=== PATIENT | female | born 1995 | race Caucasian/White ===

== ENCOUNTER 2017-05-13 13:52 | Observation (INO) | payer BC, MEDICAID ==
[2017-05-13] MEDS ORDERED: Ondansetron 4 MG/2 ML SDV ONE (14:09)
[2017-05-13] MEDS ORDERED: Dextrose 5%-Lactated Ringers 1,000 ML IV SCH (14:15)
[2017-05-13] MEDS: Ondansetron 4 MG/2 ML SDV IVPUSH PRN ×2 (14:20→21:10)
--- NOTE | 2017-05-13 14:36 | PCM.LDHP ---
L&D History of Present Illness - General Date of Service: 05/13/17 Admit Problem/Dx: Patient Status Order with Admit Dx/Problem 05/13/17 14:05 Patient Status [ADT] Routine Admission Diagnosis/Problem Admission Diagnosis/Problem Source of Information: Patient History Limitations: Reports: No Limitations - History of Present Illness Introduction:: 21-year-old G [id number] ALEXIS 07/11/17 estimated gestational age 31 weeks presented to labor and delivery with history of severe nausea vomiting and diarrhea since 0630 hrs. this morning. As had nausea and vomiting throughout the . Patient has been unable to hold down solids or liquids. Will plan IV hydration and IV Zofran and further evaluation CBC and CMP ordered. An Amnisure collected results pending. No gross pooling of fluid in the vagina and the cervix was closed and long on exam at approximately 1430 hrs. patient not having contractions. NST reassuring for gestational age at present time with patient being dehydrated. No dysuria or frequency urgency out of the normal for but she has felt "chills" she is afebrile. History of marijuana use early in prior to finding out she was , denies use since. Amnisure negative phone report Continues to have nausea and vomiting, Flu A & B negative. Patient still complains of chills very pale not able to go home. Pain Score: 0 Improves with: Reports: None Worsens with: Reports: None Associated Symptoms: Reports: N - Related Data Allergies/Adverse Reactions: Allergies Allergy/AdvReac Type Severity Reaction Status Date / Time latex Allergy Hives Verified 02/10/16 09:38 Sulfa (Sulfonamide Allergy Hives Verified 02/10/16 09:38 Antibiotics) Home Medications: Home Meds Norethindrone AC-Eth Estradiol [Norethind-Eth Estrad 1-0.02 mg] 1 tab PO DAILY 02/09/16 [History] Past Medical History HEENT History: Reports: Allergic Rhinitis Respiratory History: Reports: Other (See Below) Other Respiratory History: cough Gastrointestinal History: Reports: GERD, Other (See Below) Other Gastrointestinal History: Intermittent diarrhea, gastric mass, abdominal pain 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 - Past Surgical History Musculoskeletal Surgical History: Reports: Other (See Below) Social & Family History - Family History Cardiac: Reports: Hypertension Respiratory: Reports: Asthma Musculoskeletal: Reports: Arthritis Neurological: Reports: CVA Other Psychiatric Family History: aldohol abuse Hematologic: Reports: Bleeding Disorder Oncologic: Reports: Breast - Tobacco Use Smoking Status *Q: Current Every Day Smoker (6 cigs/day for 4 yrs) Years of Tobacco use: 3 Packs/Tins Daily: 0.5 Second Hand Smoke Exposure: Yes - Recreational Drug Use Recreational Drug Use: No Drug Use in Last 12 Months: Yes Recreational Drug Type: Reports: Marijuana/Hashish H&P Review of Systems - Review of Systems: Review Of Systems: See Below General: Reports: Chills HEENT: Reports: No Symptoms Pulmonary: Reports: No Symptoms Cardiovascular: Reports: No Symptoms Gastrointestinal: Reports: Diarrhea, Nausea, Vomiting Genitourinary: Reports: No Symptoms Musculoskeletal: Reports: No Symptoms Skin: Reports: No Symptoms Psychiatric: Reports: No Symptoms Neurological: Reports: No Symptoms Hematologic/Lymphatic: Reports: No Symptoms Immunologic: Reports: No Symptoms L&D Exam - Exam Exam: See Below - Vital Signs Weight: 169 lb 1.6 oz - OB Specific Fundal Height In cm: 30 Contraction Duration (sec): 0 Contraction Frequency (min): 0 Movement: Active Heart Tones: Present Heart Tones per Min: 145 Heart Rate (FHR) Variability: Moderate (6-25 bmp) Presentation: Vertex (Floating) - Willams Score Willams Score Cervix Position: Posterior Willams Score Consistency: Soft Willams Score Effacement: 0-30% Willams Score Dilation: Closed Willams Score 's Station: -3 Willams Score Total: 2 - Exam General: Alert, Oriented, Mild Distress, Lethargic HEENT: Conjunctiva Clear, Normal Nasal Septum, Posterior Pharynx Clear, TMs Clear, Other (Mucous membranes dry patient dehydrated from nausea and vomiting) , PERRLA. No: Mucosa Moist & [place] Neck: Supple, Trachea Midline Lungs: Clear to Auscultation, Normal Respiratory Effort Cardiovascular: Regular Rate, Regular Rhythm GI/Abdominal Exam: Normal Bowel Sounds, Soft, Non-Tender, No Organomegaly, No Distention, No Abnormal Bruit, No Mass, Pelvis Stable Genitourinary: Normal external exam, Normal bimanual exam, Normal speculum exam Back Exam: Normal Inspection, Full Range of Motion Extremities: Normal Inspection, Normal Range of Motion, Non-Tender, No Pedal Edema, Normal Capillary Refill Skin: Dry, Intact, Cool Psychiatric: Alert, Normal Affect, Normal Mood - Patient Data Result Diagrams: 05/13/17 14:25 05/13/17 14:25 - Problem List (1) 31 weeks gestation of SNOMED Code(s): 44892183 ICD Code: Z3A.31 - 31 WEEKS GESTATION OF Status: Acute Current Visit: Yes (2) Nausea vomiting and diarrhea SNOMED Code(s): 1510754 ICD Code: R11.2 - NAUSEA WITH VOMITING, UNSPECIFIED; R19.7 - DIARRHEA, UNSPECIFIED Status: Acute Current Visit: Yes (3) Hyperemesis gravidarum with electrolyte imbalance SNOMED Code(s): 248974741 ICD Code: O21.1 - HYPEREMESIS GRAVIDARUM WITH METABOLIC DISTURBANCE Status : Acute Current Visit: Yes (4) Gastroenteritis SNOMED Code(s): 02012090 ICD Code: K52.9 - NONINFECTIVE GASTROENTERITIS AND COLITIS, UNSPECIFIED Status: Acute Current Visit: Yes Problem List Initiated/Reviewed/Updated: No Orders Last 24hrs: Active Orders 24 hr Category Date Time Status Patient Status [ADT] Routine ADT 05/13/17 14:05 Active Non Stress Test [RC] PER UNIT ROUTINE Care 05/13/17 14:05 Active Vital Signs [RC] PER UNIT ROUTINE Care 05/13/17 14:05 Active Clear Liquid Diet [DIET] Diet 05/13/17 Breakfast Active BASIC METABOLIC PANEL,BMP [CHEM] Stat Lab 05/13/17 14:25 Received CBC WITH AUTO DIFF [HEME] Stat Lab 05/13/17 14:25 Received CULTURE URINE [RM] Stat Lab 05/13/17 13:45 Received DRUG SCREEN, URINE [URCHEM] Stat Lab 05/13/17 14:04 Uncollected UA W/MICROSCOPIC [URIN] Stat Lab 05/13/17 13:45 Received Dextrose 5%-Lactated Ringers 1,000 ml Med 05/13/17 14:15 Active IV ASDIRECTED Ondansetron [Zofran] Med 05/13/17 14:04 Active 4 mg IVPUSH Q4H PRN Resuscitation Status Routine Resus Stat 05/13/17 14:04 Ordered Medication Orders Dextrose/Lactated Ringer's (Dextrose 5%-Lactated Ringers) 1,000 mls @ 500 mls/ hr IV ASDIRECTED MARILU Ondansetron HCl (Zofran) 4 mg IVPUSH Q4H PRN PRN Reason: Nausea/Vomiting Assessment/Plan Comment:: IV hydration, CBC, CMP, Zofran 4 mg given IV, amnisure collected
[2017-05-13] MEDS ORDERED: Dextrose 5%-Lact Ringers w/KCl 1,000 ML IV SCH ×2 (15:00→18:30)
[2017-05-13] MEDS ORDERED: hydrOXYzine HCl 25 MG/ML SDV IM PRN (15:32)
[2017-05-13] MEDS ORDERED: Acetaminophen Susp 325 MG/10.15 ML UD Cup PO PRN (18:00)
[2017-05-13] MEDS ORDERED: Benzocaine/Cetylpyridinium/Menthol Lozenge MUCMEM PRN (19:41)
[2017-05-13] MEDS: Calcium Carbonate 500 MG Tab.Chew PO PRN (20:25)
[2017-05-14] MEDS: Calcium Carbonate 500 MG Tab.Chew PO PRN (05:50)
[2017-05-14] MEDS ORDERED: Dextrose 5%-Lactated Ringers 1,000 ML IV SCH (07:00)
--- NOTE | 2017-05-14 09:18 | PCM.DCSUM1 ---
Discharge Summary - Hospital Course Free Text/Narrative:: Nausea and vomiting and dehydration and diarrhea resolved with IV fluid hydration. Patient states she is feeling much better today. Will be dismissed to see Dr. Dominguez tomorrow. Potassium was 3.3 yesterday not repeated today. Return if any problems or concerns. Nonstress test reactive today. HPI Initial Comments: Nausea and vomiting and dehydration and diarrhea resolved with IV fluid hydration. Patient states she is feeling much better today. Will be dismissed to see Dr. Dominguez tomorrow. Potassium was 3.3 yesterday not repeated today. Return if any problems or concerns. Nonstress test reactive today. Brief History: Nausea and vomiting and dehydration and diarrhea resolved with IV fluid hydration. Patient states she is feeling much better today. Will be dismissed to see Dr. Dominguez tomorrow. Potassium was 3.3 yesterday not repeated today. Return if any problems or concerns. Nonstress test reactive today. - Discharge Data Discharge Date: 05/14/17 Discharge Disposition: Home, Self-Care 01 Condition: Good - Discharge Diagnosis/Problem(s) (1) 31 weeks gestation of SNOMED Code(s): 28603361 ICD Code: Z3A.31 - 31 WEEKS GESTATION OF Status: Acute Current Visit: Yes (2) Nausea vomiting and diarrhea SNOMED Code(s): 6140236 ICD Code: R11.2 - NAUSEA WITH VOMITING, UNSPECIFIED; R19.7 - DIARRHEA, UNSPECIFIED Status: Acute Current Visit: Yes (3) Hyperemesis gravidarum with electrolyte imbalance SNOMED Code(s): 061088122 ICD Code: O21.1 - HYPEREMESIS GRAVIDARUM WITH METABOLIC DISTURBANCE Status : Acute Current Visit: Yes (4) Gastroenteritis SNOMED Code(s): 92403087 ICD Code: K52.9 - NONINFECTIVE GASTROENTERITIS AND COLITIS, UNSPECIFIED Status: Acute Current Visit: Yes (5) Hypokalemia SNOMED Code(s): 10828740 ICD Code: E87.6 - HYPOKALEMIA Status: Acute Current Visit: Yes - Patient Summary/Data Complications: None Consults: None Hospital Course: Uneventful - Patient Instructions Diet: Regular Diet as Tolerated Driving: Do Not Drive (Until Monday.) Showering/Bathing: May Shower Notify Provider of: Fever, Increased Pain, Swelling and Redness, Drainage, Nausea and/or Vomiting - Discharge Plan Prescriptions/Med Rec: Ondansetron [Zofran ODT] 4 mg PO Q8H #20 tab.dis Home Medications: Home Meds Ondansetron [Zofran ODT] 4 mg PO Q8H #20 tab.dis 05/14/17 [Rx] Referrals: Chloé Dominguez MD [Primary Care Provider] - (Patient has appointment to see Dr. Dominguez Monday05/15/17) - Discharge Summary/Plan Comment DC Time >30 min.: No - Patient Data Vitals - Most Recent: Last Vital Signs Temp 98.1 F 05/13/17 19:49 Pulse 72 05/13/17 19:49 Resp 18 05/13/17 19:49 BP 127/89 05/13/17 19:49 Pulse Ox 95 05/13/17 19:49 Weight - Most Recent: 169 lb 1.6 oz I&O - Last 24 hours: Intake & Output 05/13/17 05/14/17 05/14/17 22:59 06:59 14:59 Intake Total 1999 Balance 1999 Lab Results - Last 24 hrs: Laboratory Results - last 24 hr 05/13/17 05/13/17 05/13/17 Range/Units 13:45 13:45 14:15 WBC (3.98-10.04) K/mm3 RBC (3.98-5.22) M/mm3 Hgb (11.2-15.7) gm/L Hct (34.1-44.9) % MCV (79.4-94.8) fl MCH (25.6-32.2) pg MCHC (32.2-35.5) g/dl RDW Std Deviation (36.4-46.3) fL Plt Count (182-369) K/mm3 MPV (9.4-12.3) fl Neut % (Auto) (34.0-71.1) % Lymph % (Auto) (19.3-51.7) % [place] % (Auto) (4.7-12.5) % Eos % (Auto) (0.7-5.8) Baso % (Auto) (0.1-1.2) % Neut # (Auto) (1.56-6.13) K/mm3 Lymph # (Auto) (1.18-3.74) K/mm3 [place] # (Auto) (0.24-0.36) K/mm3 Eos # (Auto) (0.04-0.36) K/mm3 Baso # (Auto) (0.01-0.08) K/mm3 Sodium (136-145) mEq/L Potassium (3.5-5.1) mEq/L Chloride (98-107) mEq/L Carbon Dioxide (21-32) mEq/L Anion Gap (5-15) BUN (7-18) mg/dL Creatinine (0.55-1.02) mg/dL Est Cr Clr Drug Dosing mL/min Estimated GFR (MDRD) (>60) mL/min BUN/Creatinine Ratio (14-18) Glucose (74-106) mg/dL Calcium (8.5-10.1) mg/dL Urine Color Yellow (Yellow) Urine Appearance Cloudy H (Clear) Urine pH 8.5 H (5.0-8.0) Ur Specific [place] 1.020 (1.005-1.030) Urine Protein 1+ H (Negative) Urine Glucose (UA) Negative (Negative) Urine Ketones 3+ H (Negative) Urine Occult Blood Negative (Negative) Urine Nitrite Negative (Negative) Urine Bilirubin Negative (Negative) Urine Urobilinogen 0.2 (0.2-1.0) Ur Leukocyte Esterase Negative (Negative) Urine RBC Not seen (0-5) /hpf Urine WBC 0-5 (0-5) /hpf Ur Epithelial Cells 10-20 H (0-5) /hpf Amorphous Sediment Many H (NOT SEEN) /hpf Urine Bacteria Few (FEW) /hpf Urine Mucus Not seen (FEW) /hpf Membrane Rupture Negative Urine Opiates Screen Negative (NEGATIVE) Ur Buprenorphine Scrn Negative (NEGATIVE) Ur Oxycodone Screen Negative (NEGATIVE) Urine Methadone Screen Negative (NEGATIVE) Ur Propoxyphene Screen Negative (NEGATIVE) Ur Barbiturates Screen Negative (NEGATIVE) Ur Tricyclics Screen Negative (NEGATIVE) Ur Phencyclidine Scrn Negative (NEGATIVE) Ur Amphetamine Screen Negative (NEGATIVE) U Methamphetamines Scrn Negative (NEGATIVE) U Benzodiazepines Scrn Negative (NEGATIVE) U Cocaine Metab Screen Negative (NEGATIVE) U Marijuana (THC) Screen Presumptive positive H (NEGATIVE) 05/13/17 05/13/17 Range/Units 14:25 14:25 WBC 13.63 H (3.98-10.04) K/mm3 RBC 3.86 L (3.98-5.22) M/mm3 Hgb 11.9 (11.2-15.7) gm/L Hct 35.2 (34.1-44.9) % MCV 91.2 (79.4-94.8) fl MCH 30.8 (25.6-32.2) pg MCHC 33.8 (32.2-35.5) g/dl RDW Std Deviation 41.0 (36.4-46.3) fL Plt Count 344 (182-369) K/mm3 MPV 10.6 (9.4-12.3) fl Neut % (Auto) 82.1 H (34.0-71.1) % Lymph % (Auto) 12.5 L (19.3-51.7) % [place] % (Auto) 4.9 (4.7-12.5) % Eos % (Auto) 0.1 L (0.7-5.8) Baso % (Auto) 0.1 (0.1-1.2) % Neut # (Auto) 11.19 H (1.56-6.13) K/mm3 Lymph # (Auto) 1.70 (1.18-3.74) K/mm3 [place] # (Auto) 0.67 H (0.24-0.36) K/mm3 Eos # (Auto) 0.01 L (0.04-0.36) K/mm3 Baso # (Auto) 0.02 (0.01-0.08) K/mm3 Sodium 139 (136-145) mEq/L Potassium 3.3 L (3.5-5.1) mEq/L Chloride 105 (98-107) mEq/L Carbon Dioxide 20 L (21-32) mEq/L Anion Gap 17.3 H (5-15) BUN 7 (7-18) mg/dL Creatinine 0.5 L (0.55-1.02) mg/dL Est Cr Clr Drug Dosing 147.23 mL/min Estimated GFR (MDRD) > 60 (>60) mL/min BUN/Creatinine Ratio 14.0 (14-18) Glucose 94 (74-106) mg/dL Calcium 8.8 (8.5-10.1) mg/dL Urine Color (Yellow) Urine Appearance (Clear) Urine pH (5.0-8.0) Ur Specific [place] (1.005-1.030) Urine Protein (Negative) Urine Glucose (UA) (Negative) Urine Ketones (Negative) Urine Occult Blood (Negative) Urine Nitrite (Negative) Urine Bilirubin (Negative) Urine Urobilinogen (0.2-1.0) Ur Leukocyte Esterase (Negative) Urine RBC (0-5) /hpf Urine WBC (0-5) /hpf Ur Epithelial Cells (0-5) /hpf Amorphous Sediment (NOT SEEN) /hpf Urine Bacteria (FEW) /hpf Urine Mucus (FEW) /hpf Membrane Rupture Urine Opiates Screen (NEGATIVE) Ur Buprenorphine Scrn (NEGATIVE) Ur Oxycodone Screen (NEGATIVE) Urine Methadone Screen (NEGATIVE) Ur Propoxyphene Screen (NEGATIVE) Ur Barbiturates Screen (NEGATIVE) Ur Tricyclics Screen (NEGATIVE) Ur Phencyclidine Scrn (NEGATIVE) Ur Amphetamine Screen (NEGATIVE) U Methamphetamines Scrn (NEGATIVE) U Benzodiazepines Scrn (NEGATIVE) U Cocaine Metab Screen (NEGATIVE) U Marijuana (THC) Screen (NEGATIVE) NEETU Results - Last 24 hrs: Microbiology 05/13/17 15:25 Influenza Type A Antigen Screen - Final Nasopharyngeal Swab - Nare, Unspecified NEGATIVE INFLUENZA A VIRUS AG Influenza Type B Antigen Screen - Final NEGATIVE INFLUENZA B VIRUS AG Med Orders - Current: Current Medications Acetaminophen (Tylenol Solution) 650 mg PO Q6H PRN PRN Reason: Pain Benzocaine/Menthol (Cepacol Sore Throat) 1 lozenge MUCMEM Q2HR PRN PRN Reason: Sore Throat Last Admin: 05/13/17 20:00 Dose: 1 lozenge Calcium Carbonate/Glycine (Tums) 500 mg PO Q2HR PRN PRN Reason: Indigestion Last Admin: 05/14/17 05:50 Dose: 500 mg Hydroxyzine HCl (Vistaril) 50 mg IM Q6H PRN PRN Reason: Nausea Last Admin: 05/13/17 15:55 Dose: 50 mg Dextrose/Lactated Ringer's (Dextrose 5%-Lactated Ringers) 1,000 mls @ 125 mls/ hr IV ASDIRECTED MARILU Ondansetron HCl (Zofran) 4 mg IVPUSH Q4H PRN PRN Reason: Nausea/Vomiting Last Admin: 05/13/17 21:10 Dose: 4 mg Discontinued Medications Dextrose/Lactated Ringer's (Dextrose 5%-Lactated Ringers) 1,000 mls @ 500 mls/ hr IV ASDIRECTED MARILU Last Admin: 05/13/17 14:30 Dose: 500 mls/hr Potassium Cl/Dextrose/Lact Ringer's (D5 Lr With 20 Meq Kcl) 1,000 mls @ 150 mls /hr IV ASDIRECTED MARILU Last Admin: 05/13/17 16:26 Dose: 150 mls/hr Potassium Cl/Dextrose/Lact Ringer's (D5 Lr With 20 Meq Kcl) 1,000 mls @ 150 mls /hr IV ASDIRECTED MARILU Stop: 05/14/17 07:00 Last Admin: 05/13/17 22:43 Dose: 150 mls/hr Ondansetron HCl (Zofran) Confirm Administered Dose 4 mg .ROUTE .STK-MED ONE Stop: 05/13/17 14:10 Last Admin: 05/13/17 18:01 Dose: Not Given *Q Meaningful Use (DIS) - VTE *Q VTE Criteria *Q: - Stroke *Q Stroke Criteria *Q: - AMI *Q AMI Criteria *Q:
[2017-05-14 10:07] VITALS: BP 117/79
[2017-05-14] MEDS ORDERED: Ondansetron 4 MG Tab.DIS PO ONE (10:10)
== END 2017-05-14 10:15 | disposition home or self-care (01) ==
LOC: JD.OB 13:52 → JD.OBCHECK 13:52 → JD.OB 17:02 → JD.OBCHECK 17:02
PROVIDERS: ADMIT Obstetrics & Gynecology; ATTEND Obstetrics & Gynecology
DX: O21.1 Hyperemesis gravidarum with metabolic disturbance (principal); O99.89 Other specified diseases and conditions complicating pregnancy, childbirth and the puerperium; E86.0 Dehydration; K52.9 Noninfective gastroenteritis and colitis, unspecified; O99.333 Smoking (tobacco) complicating pregnancy, third trimester; F17.210 Nicotine dependence, cigarettes, uncomplicated; Z88.2 Allergy status to sulfonamides; Z91.040 Latex allergy status
CPT/HCPCS: 36415; 59025; 80048; 80306; 81001; 84112; 85025; 87086; 87804; 96361; 96372; 96374; 96376; A9270; G0378; J2405; J3410; J3480; J7042

== ENCOUNTER 2017-07-04 02:49 | Inpatient (IN) | payer MEDICAID ==
[2017-07-04] MEDS ORDERED: Nalbuphine 20 MG/1 ML Amp IVPUSH PRN (03:13)
[2017-07-04] MEDS ORDERED: Lactated Ringers 1,000 ML IV SCH (03:15)
[2017-07-04] MEDS ORDERED: Oxytocin/Lactated Ringers 10 UNIT/1,000 ML BAG IV SCH (03:15)
[2017-07-04] MEDS ORDERED: Oxytocin 10 Units/1 ML SDV ONE (04:24)
[2017-07-04] MEDS ORDERED: Lidocaine 1% 50 ML MDV ONE (04:30)
[2017-07-04] MEDS ORDERED: Lidocaine 1% 50 ML MDV INFILT STA (04:52)
[2017-07-04] MEDS ORDERED: Oxytocin 10 Units/1 ML SDV IM ONE (04:52)
--- NOTE | 2017-07-04 05:01 | PCM.LDHP ---
L&D History of Present Illness - General Date of Service: 07/04/17 Admit Problem/Dx: Patient Status Order with Admit Dx/Problem 07/04/17 03:14 Patient Status [ADT] Routine Admission Diagnosis/Problem Admission Diagnosis/Problem Normal labor Source of Information: Patient History Limitations: Reports: No Limitations - History of Present Illness Introduction:: Patient is a 21 y/o at 39 0/7 wks presents this AM with SROM/Labor. Having painful contractions. Doing well otherwise. 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 Psychiatric History: Reports: Anxiety, Suicide Attempt Other Psychiatric History: suicide in 2013 - Past Surgical History HEENT Surgical History: Reports: Tonsillectomy GI Surgical History: Reports: Colonoscopy, EGD Musculoskeletal Surgical History: Reports: Other (See Below) (Fracture surgery - humerus) Social & Family History - Family History Family Medical History: Noncontributory Cardiac: Reports: Hypertension Respiratory: Reports: Asthma Musculoskeletal: Reports: Arthritis Neurological: Reports: CVA Other Psychiatric Family History: aldohol abuse Hematologic: Reports: Bleeding Disorder Oncologic: Reports: Breast - Tobacco Use Smoking Status *Q: Former Smoker Years of Tobacco use: 3 Packs/Tins Daily: 0.5 Used Tobacco, but Quit: Yes Month Tobacco Last Used: unsure Second Hand Smoke Exposure: Yes - Alcohol Use Alcohol Use History: No - Recreational Drug Use Recreational Drug Use: No Drug Use in Last 12 Months: No Recreational Drug Type: Reports: Marijuana/Hashish H&P Review of Systems - Review of Systems: Review Of Systems: See Below General: Reports: No Symptoms Pulmonary: Reports: No Symptoms Cardiovascular: Reports: No Symptoms Gastrointestinal: Reports: Abdominal Pain Genitourinary: Reports: No Symptoms Musculoskeletal: Reports: No Symptoms Psychiatric: Reports: No Symptoms L&D Exam - Exam Exam: See Below - OB Specific Contraction Intensity: Moderate to Strong Movement: Active Heart Tones: Present Heart Tones per Min: 115 Heart Rate (FHR) Variability: Moderate (6-25 bmp) Presentation: Vertex - Exam General: Alert, Oriented, Cooperative Lungs: Clear to Auscultation, Normal Respiratory Effort Cardiovascular: Regular Rate, Regular Rhythm GI/Abdominal Exam: Soft, Non-Tender Genitourinary: Normal external exam Extremities: Normal Inspection Skin: Warm, Dry, Intact - Patient Data Lab Results Last 24 hrs: Laboratory Results - last 24 hr 07/04/17 07/04/17 Range/Units 03:25 03:25 WBC 8.64 (3.98-10.04) K/mm3 RBC 3.80 L (3.98-5.22) M/mm3 Hgb 11.6 (11.2-15.7) gm/L Hct 34.4 (34.1-44.9) % MCV 90.5 (79.4-94.8) fl MCH 30.5 (25.6-32.2) pg MCHC 33.7 (32.2-35.5) g/dl RDW Std Deviation 44.3 (36.4-46.3) fL Plt Count 299 (182-369) K/mm3 MPV 10.9 (9.4-12.3) fl Neut % (Auto) 76.2 H (34.0-71.1) % Lymph % (Auto) 8.3 L (19.3-51.7) % [place] % (Auto) 14.0 H (4.7-12.5) % Eos % (Auto) 0.1 L (0.7-5.8) Baso % (Auto) 0.6 (0.1-1.2) % Neut # (Auto) 6.58 H (1.56-6.13) K/mm3 Lymph # (Auto) 0.72 L (1.18-3.74) K/mm3 [place] # (Auto) 1.21 H (0.24-0.36) K/mm3 Eos # (Auto) 0.01 L (0.04-0.36) K/mm3 Baso # (Auto) 0.05 (0.01-0.08) K/mm3 Manual Slide Review Normal smear Blood Type O POSITIVE Gel Antibody Screen Negative Result Diagrams: 07/04/17 03:25 - Problem List (1) 39 weeks gestation of SNOMED Code(s): 65145840 ICD Code: Z3A.39 - 39 WEEKS GESTATION OF Status: Acute Current Visit: Yes (2) Normal labor SNOMED Code(s): 73840433 ICD Code: O80 - ENCOUNTER FOR FULL-TERM UNCOMPLICATED DELIVERY; Z37.9 - OUTCOME OF DELIVERY, UNSPECIFIED Status: Acute Current Visit: Yes Problem List Initiated/Reviewed/Updated: Yes Orders Last 24hrs: Active Orders 24 hr Category Date Time Status Patient Status [ADT] Routine ADT 07/04/17 03:14 Active Activity as Tolerated [RC] PFP Care 07/04/17 03:14 Active Communication Order [RC] ASDIRECTED Care 07/04/17 03:14 Active Notify Provider [RC] PFP Care 07/04/17 03:14 Active Notify Provider [RC] PRN Care 07/04/17 03:14 Active Vital Signs [RC] PER UNIT ROUTINE Care 07/04/17 03:14 Active Regular Diet [DIET] Diet 07/04/17 Breakfast Active TYPE AND SCREEN [BBK] Stat Lab 07/04/17 03:25 Received Lactated Ringers [Ringers, Lactated] 1,000 ml Med 07/04/17 03:15 Active IV ASDIRECTED Nalbuphine [Nubain] Med 07/04/17 03:13 Active 10 mg IVPUSH Q2H PRN Oxytocin/Lactated Ringers [Pitocin in LR 10 Units/1,000 Med 07/04/17 03:15 Active ML] 10 unit in 1,000 ml IV .CONTINUOUS Electronic Heart Tones Ext w TOCO [WOMSER] Oth 07/04/17 03:14 Ordered Routine Electronic Heart Tones Internal [WOMSER] Per Unit Oth 07/04/17 03:14 Ordered Routine Peripheral IV Insertion Adult [OM.PC] Routine Oth 07/04/17 03:14 Ordered Resuscitation Status Routine Resus Stat 07/04/17 03:13 Ordered Medication Orders Lactated Ringer's (Ringers, Lactated) 1,000 mls @ 100 mls/hr IV ASDIRECTED MARILU Oxytocin/Lactated Ringer's (Pitocin In Lr 10 Units/1,000 Ml) 10 unit in 1,000 mls @ 500 mls/hr IV .CONTINUOUS MARILU Nalbuphine HCl (Nubain) 10 mg IVPUSH Q2H PRN PRN Reason: Pain (moderate 4-6) Assessment/Plan Comment:: 21 y/o at 39 0/7 wks presented with SROM/contractions. Progressed rapidly to complete dilation. Arrived when patient completely dilated. Anticipate . GBS negative
--- NOTE | 2017-07-04 05:06 | PCM.DEL ---
L & D Note - General Info Date of Service: 07/04/17 - Delivery Note Labor: Spontaneous Delivery Outcome: Livebirth Delivery Method: Spontaneous Vaginal Delivery-Single Delivery Mode: Spontaneous Presentation: Right Occiput Anterior (EILEEN) Nuchal Cord: None Anesthesia Type: Epidural Amniotic Fluid Description: Clear Episiotomy Type: None Laceration: 1st Degree (small and hemostatic, not sutured ) Placenta: Intact, Spontaneous Resuscitation Needed: Yes [place]ashion: Bulb Syringe, Stimulated, Warmed, [place] Used, Warmer Used Delivery Comments (Free Text/Narrative):: Patient found to be complete and began pushing. With maternal pushing effort head delivered from an ELIEEN presentation. No nuchal cord present. With gentle downward traction the shoulders and body delivered. Infant placed on maternal abdomen. Cord clamped and cut. Cord blood obtained. Placenta allowed time to separate and spontaneously expelled. Inspection of the perineum showed a very small 1st degree laceration which was hemostatic and so not sutured. - Patient Data Lab Results Last 24 Hours: Laboratory Results - last 24 hr 07/04/17 07/04/17 Range/Units 03:25 03:25 WBC 8.64 (3.98-10.04) K/mm3 RBC 3.80 L (3.98-5.22) M/mm3 Hgb 11.6 (11.2-15.7) gm/L Hct 34.4 (34.1-44.9) % MCV 90.5 (79.4-94.8) fl MCH 30.5 (25.6-32.2) pg MCHC 33.7 (32.2-35.5) g/dl RDW Std Deviation 44.3 (36.4-46.3) fL Plt Count 299 (182-369) K/mm3 MPV 10.9 (9.4-12.3) fl Neut % (Auto) 76.2 H (34.0-71.1) % Lymph % (Auto) 8.3 L (19.3-51.7) % Grainger % (Auto) 14.0 H (4.7-12.5) % Eos % (Auto) 0.1 L (0.7-5.8) Baso % (Auto) 0.6 (0.1-1.2) % Neut # (Auto) 6.58 H (1.56-6.13) K/mm3 Lymph # (Auto) 0.72 L (1.18-3.74) K/mm3 Grainger # (Auto) 1.21 H (0.24-0.36) K/mm3 Eos # (Auto) 0.01 L (0.04-0.36) K/mm3 Baso # (Auto) 0.05 (0.01-0.08) K/mm3 Manual Slide Review Normal smear Blood Type O POSITIVE Gel Antibody Screen Negative Med Orders - Current: Current Medications Lactated Ringer's (Ringers, Lactated) 1,000 mls @ 100 mls/hr IV ASDIRECTED MARILU Oxytocin/Lactated Ringer's (Pitocin In Lr 10 Units/1,000 Ml) 10 unit in 1,000 mls @ 500 mls/hr IV .CONTINUOUS MARILU Nalbuphine HCl (Nubain) 10 mg IVPUSH Q2H PRN PRN Reason: Pain (moderate 4-6) Discontinued Medications Lidocaine HCl (Xylocaine 1%) Confirm Administered Dose 50 ml .ROUTE .STK-MED ONE Stop: 07/04/17 04:31 Lidocaine HCl (Xylocaine 1%) 50 ml INFILT NOW STA Stop: 07/04/17 04:53 Oxytocin (Pitocin) Confirm Administered Dose 10 unit .ROUTE .STK-MED ONE Stop: 07/04/17 04:25 Oxytocin (Pitocin) 10 unit IM ONETIME ONE Stop: 07/04/17 04:53 - Problem List & Annotations (1) 39 weeks gestation of SNOMED Code(s): 96722459 Code(s): Z3A.39 - 39 WEEKS GESTATION OF Status: Acute Current Visit: Yes (2) Normal labor SNOMED Code(s): 08768265 Code(s): O80 - ENCOUNTER FOR FULL-TERM UNCOMPLICATED DELIVERY; Z37.9 - OUTCOME OF DELIVERY, UNSPECIFIED Status: Acute Current Visit: Yes - Problem List Review Problem List Initiated/Reviewed/Updated: Yes - My Orders Last 24 Hours: My Active Orders 07/04/17 03:13 Nalbuphine [Nubain] 10 mg IVPUSH Q2H PRN Resuscitation Status Routine 07/04/17 03:14 Patient Status [ADT] Routine Activity as Tolerated [RC] PFP Communication Order [RC] ASDIRECTED Notify Provider [RC] PFP Notify Provider [RC] PRN Vital Signs [RC] PER UNIT ROUTINE Electronic Heart Tones Ext w TOCO [WOMSER] Routine Electronic Heart Tones Internal [WOMSER] Per Unit Routine Peripheral IV Insertion Adult [OM.PC] Routine 07/04/17 03:15 Lactated Ringers [Ringers, Lactated] 1,000 ml IV ASDIRECTED Oxytocin/Lactated Ringers [Pitocin in LR 10 Units/1,000 ML] 10 unit in 1,000 ml IV .CONTINUOUS 07/04/17 03:25 PATIENT RETYPE [BBK] Stat TYPE AND SCREEN [BBK] Stat 07/04/17 05:03 Patient Status Manage Transfer [TRANSFER] Routine 07/04/17 Breakfast Regular Diet [DIET] - Assessment Assessment:: 21 y/o PPD#0 from at 39 0/7 wks - Plan Plan:: * Routine cares * Encourage breast feeding * Discharge home in 1-2 days
[2017-07-04] MEDS ORDERED: Witch Hazel Medicated Pads 100/Jar TOP PRN (05:54)
[2017-07-04] MEDS ORDERED: Acetaminophen 325 MG Tab PO PRN (05:54)
[2017-07-04] MEDS ORDERED: Docusate Sodium 100 MG Cap PO PRN (05:54)
[2017-07-04] MEDS ORDERED: Benzocaine/Menthol 20%-0.5% Spray 56 GM Canister TOP PRN (05:54)
[2017-07-04] MEDS ORDERED: Lanolin 100% Cream 7 GM Tube TOP PRN (05:54)
[2017-07-04] MEDS: Ibuprofen 600 MG Tab PO PRN (20:45)
--- NOTE | 2017-07-05 07:20 | PCM.DCSUM1 ---
Discharge Summary - Discharge Data Discharge Date: 07/05/17 Discharge Disposition: Home, Self-Care 01 Condition: Good - Discharge Diagnosis/Problem(s) (1) 39 weeks gestation of SNOMED Code(s): 11053187 ICD Code: Z3A.39 - 39 WEEKS GESTATION OF Status: Acute Current Visit: Yes (2) Normal labor SNOMED Code(s): 24583420 ICD Code: O80 - ENCOUNTER FOR FULL-TERM UNCOMPLICATED DELIVERY; Z37.9 - OUTCOME OF DELIVERY, UNSPECIFIED Status: Acute Current Visit: Yes (3) Vaginal delivery SNOMED Code(s): 527056696 ICD Code: O80 - ENCOUNTER FOR FULL-TERM UNCOMPLICATED DELIVERY Status: Acute Current Visit: Yes - Patient Summary/Data Complications: None Consults: None Recommended Follow-up Testing/Procedures: Follow up in 5-6 weeks for check Hospital Course: 21 y/o at 39 0/7 wks presented in active labor. She progressed rapidly to complete dilation and underwent an uncomplicated . See delivery note. she did well and was discharged home on PPD#1 - Patient Instructions Diet: Regular Diet as Tolerated Activity: As Tolerated Activity, Other: Pelvic Rest for 6 weeks Driving: May Drive Today Showering/Bathing: May Shower Showering/Bathing, Other: May Bathe Notify Provider of: Fever, Increased Pain, Swelling and Redness, Drainage, Nausea and/or Vomiting - Discharge Plan Home Medications: Home Meds Docusate Sodium [Colace] 100 mg PO BID PRN cap 07/04/17 [Rx] Ibuprofen [IJD: Ibuprofen] 600 mg PO Q6H PRN tablet 07/04/17 [Rx] Patient Handouts: Smoking Cessation, Tips for Success, [id number], Smoking Hazards, Tobacco Use Disorder Referrals: Chloé Dominguez MD [Primary Care Provider] - (5-6 weeks for check) - Discharge Summary/Plan Comment DC Time >30 min.: No - Patient Data Vitals - Most Recent: Last Vital Signs Temp 36.8 C 07/05/17 04:13 Pulse 72 07/05/17 04:13 Resp 14 07/05/17 04:13 BP 108/84 07/05/17 04:13 Pulse Ox 95 07/05/17 04:13 Weight - Most Recent: 79.197 kg Med Orders - Current: Current Medications Acetaminophen (Tylenol) 650 mg PO Q4H PRN PRN Reason: mild pain or fever Benzocaine/Menthol (Dermoplast Pain Relief [place]) 0 gm TOP ASDIRECTED PRN PRN Reason: Perineal Comfort Measure Docusate Sodium (Colace) 100 mg PO BID PRN PRN Reason: Constipation Emollient Ointment (Lansinoh Hpa) 0 gm TOP ASDIRECTED PRN PRN Reason: Sore Nipples Ibuprofen (Motrin) 600 mg PO Q6H PRN PRN Reason: Mild pain or fever Last Admin: 07/04/17 20:45 Dose: 600 mg Witch Emily (Tucks) 1 pad TOP ASDIRECTED PRN PRN Reason: Hemorrhoid pain Discontinued Medications Lactated Ringer's (Ringers, Lactated) 1,000 mls @ 100 mls/hr IV ASDIRECTED MARILU Oxytocin/Lactated Ringer's (Pitocin In Lr 10 Units/1,000 Ml) 10 unit in 1,000 mls @ 500 mls/hr IV .CONTINUOUS MARILU Lidocaine HCl (Xylocaine 1%) Confirm Administered Dose 50 ml .ROUTE .STK-MED ONE Stop: 07/04/17 04:31 Lidocaine HCl (Xylocaine 1%) 50 ml INFILT NOW STA Stop: 07/04/17 04:53 Nalbuphine HCl (Nubain) 10 mg IVPUSH Q2H PRN PRN Reason: Pain (moderate 4-6) Oxytocin (Pitocin) Confirm Administered Dose 10 unit .ROUTE .STK-MED ONE Stop: 07/04/17 04:25 Oxytocin (Pitocin) 10 unit IM ONETIME ONE Stop: 07/04/17 04:53 Last Admin: 07/04/17 07:12 Dose: 10 unit *Q Meaningful Use (DIS) - VTE *Q VTE Criteria *Q: - Stroke *Q Stroke Criteria *Q: - AMI *Q AMI Criteria *Q:
--- NOTE | 2017-07-05 07:20 | PCM.PNPP ---
- General Info Date of Service: 07/05/17 Functional Status: Reports: Pain Controlled, Tolerating Diet, Ambulating, Urinating - Review of Systems General: Reports: No Symptoms Pulmonary: Reports: No Symptoms Cardiovascular: Reports: No Symptoms Gastrointestinal: Reports: No Symptoms Genitourinary: Reports: No Symptoms Musculoskeletal: Reports: No Symptoms - Patient Data Vital Signs - Most Recent: Last Vital Signs Temp 36.8 C 07/05/17 04:13 Pulse 72 07/05/17 04:13 Resp 14 07/05/17 04:13 BP 108/84 07/05/17 04:13 Pulse Ox 95 07/05/17 04:13 Weight - Most Recent: 79.197 kg Med Orders - Current: Current Medications Acetaminophen (Tylenol) 650 mg PO Q4H PRN PRN Reason: mild pain or fever Benzocaine/Menthol (Dermoplast Pain Relief [place]) 0 gm TOP ASDIRECTED PRN PRN Reason: Perineal Comfort Measure Docusate Sodium (Colace) 100 mg PO BID PRN PRN Reason: Constipation Emollient Ointment (Lansinoh Hpa) 0 gm TOP ASDIRECTED PRN PRN Reason: Sore Nipples Ibuprofen (Motrin) 600 mg PO Q6H PRN PRN Reason: Mild pain or fever Last Admin: 07/04/17 20:45 Dose: 600 mg Witch Emily (Tucks) 1 pad TOP ASDIRECTED PRN PRN Reason: Hemorrhoid pain Discontinued Medications Lactated Ringer's (Ringers, Lactated) 1,000 mls @ 100 mls/hr IV ASDIRECTED MARILU Oxytocin/Lactated Ringer's (Pitocin In Lr 10 Units/1,000 Ml) 10 unit in 1,000 mls @ 500 mls/hr IV .CONTINUOUS MARILU Lidocaine HCl (Xylocaine 1%) Confirm Administered Dose 50 ml .ROUTE .STK-MED ONE Stop: 07/04/17 04:31 Lidocaine HCl (Xylocaine 1%) 50 ml INFILT NOW STA Stop: 07/04/17 04:53 Nalbuphine HCl (Nubain) 10 mg IVPUSH Q2H PRN PRN Reason: Pain (moderate 4-6) Oxytocin (Pitocin) Confirm Administered Dose 10 unit .ROUTE .STK-MED ONE Stop: 07/04/17 04:25 Oxytocin (Pitocin) 10 unit IM ONETIME ONE Stop: 07/04/17 04:53 Last Admin: 07/04/17 07:12 Dose: 10 unit - Infant Interaction Disposition, : in Room with Family Interaction: Holding Infant Infant Feeding: Attempted ; Nursed Fair/Poor, Bottle Fed Support Person: Significant Other - Recovery Exam Fundal Tone: Firm Fundal Level: 1 Fingerbreadths Below Umbilicus Fundal Placement: Midline Lochia Amount: Scant Lochia Color: Rubra/Red Perineum Description: Intact, Minimal Bruising/Swelling Bladder Status: Voiding Urinary Elimination: Voided - Exam General: Alert, Oriented, Cooperative GI/Abdominal Exam: Soft, Non-Tender Extremities: Normal Inspection Skin: Warm, Dry, Intact - Problem List & Annotations (1) 39 weeks gestation of SNOMED Code(s): 20082795 Code(s): Z3A.39 - 39 WEEKS GESTATION OF Status: Acute Current Visit: Yes (2) Normal labor SNOMED Code(s): 02969208 Code(s): O80 - ENCOUNTER FOR FULL-TERM UNCOMPLICATED DELIVERY; Z37.9 - OUTCOME OF DELIVERY, UNSPECIFIED Status: Acute Current Visit: Yes (3) Vaginal delivery SNOMED Code(s): 302080414 Code(s): O80 - ENCOUNTER FOR FULL-TERM UNCOMPLICATED DELIVERY Status: Acute Current Visit: Yes - Problem List Review Problem List Initiated/Reviewed/Updated: Yes - My Orders Last 24 Hours: My Active Orders 07/04/17 Breakfast Regular Diet [DIET] 07/05/17 05:54 Heat Therapy [OM.PC] PRN - Assessment Assessment:: 21 y/o PPD#1 from at 39 0/7 wks - Plan Plan:: * Routine cares * Encourage breast feeding * Discharge home today per patient preference
[2017-07-05] MEDS: Ibuprofen 600 MG Tab PO PRN (11:34)
[2017-07-05 11:38] VITALS: BP 131/76
== END 2017-07-05 14:58 | disposition home or self-care (01) | DRG 775 ==
LOC: JD.OBCHECK 02:49 → JD.OB 02:52 → JD.OBCHECK 03:18 → JD.OB 03:19 → OBSVTOIN 04:36 → JD.OB 04:53
PROVIDERS: ADMIT Obstetrics & Gynecology; ATTEND Obstetrics & Gynecology
PROC: 10E0XZZ Delivery of Products of Conception, External Approach (ICD-10-PCS; principal; 2017-07-04)
DX: O42.02 Full-term premature rupture of membranes, onset of labor within 24 hours of rupture (principal); O70.0 First degree perineal laceration during delivery; Z37.0 Single live birth; Z3A.39 39 weeks gestation of pregnancy; Z87.891 Personal history of nicotine dependence; Z88.2 Allergy status to sulfonamides; Z91.040 Latex allergy status
CPT/HCPCS: 36415; 59409; 85025; 86850; 86900; 86901; A9270-GY; J2590